=== PATIENT | female | born 1950 | race Caucasian/White ===

== ENCOUNTER 2017-09-24 10:25 | Emergency (ER) | payer MEDICARE, BC ==
[~2017-09-24] VITALS: Ht 152.4 cm; Wt 78.0 kg
[2017-09-24 10:28] VITALS: BP 193/82; PULSE 89; RESP 16; TEMP 98.1; O2SAT 98
[2017-09-24] MEDS ORDERED: ENAL10TA PO (11:35)
[2017-09-24] MEDS ORDERED: HYDR12.57 PO (11:35)
[2017-09-24] MEDS ORDERED: PENI500T PO (12:45)
--- NOTE | 2017-09-24 12:45 | PD ---
HPI Chief Complaint: Oral / Dental Pain or Problem Time Seen by Provider: 12:22 Travel History International Travel<30 days: No Contact w/Intl Traveler<30days: No Traveled to known affect area: No History of Present Illness HPI This is a 67-year-old female here with left upper dental pain 3 days. She denies fever or chills. Patient reports a decayed and fractured to the site of the pain. The severity is moderate. Slightly relieved with OTC Tylenol. Aggravated by heat, cold, chewing. PFSH Past Medical History Medical History: Denies Significant Hx Diminished Hearing: No Hypertension: Yes Influenza Vaccination: Yes ?: Not Past Surgical History Surgical History: No Previous Surgery Social History Alcohol Use: No Tobacco Use: Yes Allergies-Medications (Allergen,Severity, Reaction): Coded Allergies: Sulfa (Sulfonamide Antibiotics) (Verified Allergy, Unknown, 09/24/17) erythromycin base (Verified Allergy, Unknown, 09/24/17) prednisone (Verified Allergy, Unknown, 09/24/17) Reported Meds & Prescriptions Reported Meds & Active Scripts Active Reported Hydrochlorothiazide 12.5 Mg Cap 12.5 Mg PO DAILY Enalapril (Enalapril Maleate) 10 Mg Tab 10 Mg PO DAILY Review of Systems Except as stated in HPI: all other systems reviewed are Neg General / Constitutional: No: Fever HENT: Positive: Dental Difficulties Physical Exam Narrative GENERAL: Alert and well-appearing 59-year-old female SKIN: Warm and dry. HEAD: Normocephalic. EYES: No injection or drainage. Mouth: Decayed and fractured left upper molar with surrounding gum tenderness and erythema. No swelling of the floor the mouth. Uvula is midline. Airway is patent. NECK: Supple Data Data Last Documented VS Vital Signs Date Time Temp Pulse Resp B/P (MAP) Pulse Ox O2 Delivery O2 Flow Rate FiO2 09/24/17 10:28 98.1 89 16 193/82 (568) 98 MDM Medical Decision Making Medical Screen Exam Complete: Yes Emergency Medical Condition: Yes Differential Diagnosis Dental abscess, dental fracture, dentalgia Narrative Course This is a 67-year-old female here with left upper infection 3 days. She is nontoxic appearing. She'll be treated with antibiotics. She was offered pain medication and declined. Diagnosis Primary Impression: Pain, dental Referrals: Dentist Additional Instructions: Antibiotics as directed Tylenol as needed for pain. Follow-up with a dentist Scripts Penicillin V Potassium (Penicillin V Potassium) 500 Mg Tab 500 MG PO Q6H for Infection for 7 Days, #28 TAB 0 Refills Prov: Olive White 09/24/17 Olive White Sep 24, 2017 12:45
== END 2017-09-24 12:51 | disposition home or self-care (01) ==
LOC: PHED 10:25 → PHEFT 12:51
DX: K08.89 Other specified disorders of teeth and supporting structures (principal); I10 Essential (primary) hypertension; Z72.0 Tobacco use; Z88.2 Allergy status to sulfonamides; Z88.1 Allergy status to other antibiotic agents; Z88.8 Allergy status to other drugs, medicaments and biological substances; Z79.899 Other long term (current) drug therapy
CPT/HCPCS: 99283